=== PATIENT | male | born 1975 | race Caucasian/White ===

== ENCOUNTER 2024-05-22 13:30 | Outpatient (AMB) | payer OTHER, SELFPAY ==
--- NOTE | 2024-05-22 13:30 | MHC.AM.SUB ---
Vital Signs 05/22/24 14:39 BP 170/80 H Blood Pressure Location Rt radial Position Sitting Respiration 19 Pulse 91 Pulse Source Pulse Oximeter Pulse Oximetry (%) 94 Oxygen Delivery Method Room Air Intake Visit Reasons: Walk in/Intake Allergies No Known Allergies Allergy (Verified 05/22/24 14:17) HPI HPI Walk in/Intake: Details: Patient presents as a walk in for evaluation and treatment of OUD He reports that he has been taking suboxone since 2018 Between 8-12mg daily--was buying it monthly from a friend--friend has since Denies any PMH No medications no hospitalizations Full substance use history obtained by RN and reviewed History of AUD, OUD and StUD In recovery since 2018. 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 Review of Systems Const Reports as per HPI Physical Exam Vital Signs: Last Vital Signs Pulse 91 05/22/24 14:39 Resp 19 05/22/24 14:39 BP 170/80 H 05/22/24 14:39 Pulse Ox 94 05/22/24 14:39 Oxygen Delivery Method Room Air 05/22/24 14:39 Const General: cooperative, alert and awake Nutritional Appearance: thin and underweight Orientation/consciousness: patient oriented x3 Neuro General: patient oriented x3 Psych Appearance: well kempt Speech and movement: Clear speech present Affect: Anxious affect present Attitude: cooperative Thought process: Normal thought process present Thought content: Normal thought content present Assessment & Plan Assessment & Plan (1) Opioid use disorder, severe, in sustained remission: Code(s): F11.21 - Opioid dependence, in remission Category: Medical Plan: increase suboxone dose to 12mg daily. Advised to take 1/2 film BID labs ordered to be completed prior to next appt follow up 4 weeks Orders: Orders Liver Panel 05/22/24 F11.21 - Opioid dependence, in remission Hepatitis C Antibody Reflex 05/22/24 F11.21 - Opioid dependence, in remission Complete Blood Count Auto Diff 05/22/24 F11.21 - Opioid dependence, in remission Comprehensive Met. Panel 05/22/24 F11.21 - Opioid dependence, in remission HIV Ab/Ag 05/22/24 F11.21 - Opioid dependence, in remission Medications: New buprenorphine-naloxone 12-3 mg (Suboxone) 1 film buccal Q24H 30 ea 0RF MAT Intake Nursing Intake Reason for visit: Buprenorphine Are you currently using?: No What are you taking?: Buprenorphine When was your last use?: currently take bup. has been in recovery since 2018. 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: No Have you ever overdosed?: No Have you ever been hospitalized for an overdose?: No Was Naloxone administered?: No Recovery History Have you had any periods of recovery?: Yes What is your longest time in recovery?: 6 months Have you ever had inpatient treatment for your substance abuse disorder?: No Have you been in an inpatient detoxification program?: No Have you been in an inpatient Rehab/[place] house?: No Have you been in an outpatient Methadone Maintenance program?: No Have you been in an outpatient Suboxone Maintenance program?: No Have you been in an AA/NA support program?: No Have you had a Recovery Support Straightening Press Operator Helper?: No Have you had Peer Support?: No Behavioral Health History History of self harming thoughts?: No History of homicidal or suicidal intentions?: No Medical Conditions Endocarditis?: No Skin Infection: No Seizure related to withdrawal or overdose: No Head or brain injury: No Hepatitis A (if yes, have you been treated?): No Hepatitis B (if yes, have you been treated?): No Hepatitis C (if yes, have you been treated?): No HIV (if yes, have you been treated?): No TB (if yes, have you been treated?): No Other: No Legal History History of incarceration: No Currently on parole or probation: No Court mandated programs: No Pending court cases: No DCF involvement: No
[2024-05-22 14:39] VITALS: BP 170/80; PULSE 91; RESP 19; O2SAT 94
== END 2024-05-22 15:11 | disposition home or self-care (01) ==
PROVIDERS: Visit Provider Nurse Practitioner Psychiatric/Mental Health
DX: F11.21 Opioid dependence, in remission (principal)
CPT/HCPCS: 99204

== ENCOUNTER → 2024-05-22 13:30 | Outpatient (BNVA) | payer OTHER, SELFPAY | PROVIDERS: Visit Provider Nurse Practitioner Psychiatric/Mental Health ==

== ENCOUNTER 2024-06-06 14:45 | Outpatient (REF) | payer OTHER, SELFPAY ==
[2024-06-06 15:23] LABS: MANUAL DIFF FLAG NO
[2024-06-06 15:40] LABS: Basophils Percent Auto 0.4 % (0-2); Eosinophils Absolute Auto 0.3 X10*3/uL (0.0-0.4); Eosinophils Percent Auto 3.9 % (0-4); Hematocrit 46.1 % (42.0-52.0); Hemoglobin 16.3 g/dl (14.0-18.0); Imm Gran Abs Auto 0.03 X10*3/uL (0.00-0.03); Imm Gran Pct Auto 0.4 % (0.0-0.4); Lymphocytes Absolute Auto 2.5 X10*3/uL (1.2-4.9); Lymphocytes Percent Auto 32.2 % (20-40); Mean Corpuscular HGB Conc 35.4 g/dl (31.0-36.0); Mean Corpuscular Volume 90.6 fL (80.0-98.0); Mean Platelet Volume 9.3 fL (9.4-12.4); Monocytes Absolute Auto 0.5 X10*3/uL (0.1-1.2); Monocytes Percent Auto 6.9 % (2-11); Neutrophils Absolute Auto 4.3 x10*3/uL (2.0-8.3); Neutrophils Percent Auto 56.2 % (45-73); Platelet Count 235 X10*3/uL (160-400); Red Blood Count 5.09 X10*6/uL (4.60-5.80); Red Cell Distribution Width 12.2 % (11.0-16.0); White Blood Count 7.7 X10*3/uL (4.8-10.8)
[2024-06-06 16:15] LABS: Alanine Aminotransferase 25 U/L (0-40); Albumin Level 4.4 g/dL (3.5-5.0); Alkaline Phosphatase 43 U/L (39-117); Anion Gap 8 (12-20); Aspartate Amino Transferase 30 U/L (5-37); Bilirubin Direct 0.2 mg/dL (0.0-0.5); Blood Urea Nitrogen 18 mg/dL (9-16); Calcium 9.6 mg/dL (8.4-10.2); Carbon Dioxide 31 mmol/L (22-29); Chloride 102 mmol/L (96-108); Estimated Glomerular Filt Rate > 60; Glucose Random 89 mg/dL (60-115); Potassium 4.4 mmol/L (3.3-5.1); Sodium 137 mmol/L (135-145); Total Protein 7.6 g/dL (6.5-8.0)
[2024-06-09 05:19] LABS: HIV AB/AG Nonreactive (Nonreactive); HIV Num 1 0.06 S/CO (0.00-0.99); ~HepC Num1 0.11 S/CO (0.00-0.79); ~Hepatitis C Antibody Nonreactive (Nonreactive)
== END 2024-06-06 14:46 | disposition home or self-care (01) ==
LOC: HO.LAB 14:45
PROVIDERS: Absent Provider Nurse Practitioner Psychiatric/Mental Health
DX: Z11.4 Encounter for screening for human immunodeficiency virus [HIV] (principal); F11.21 Opioid dependence, in remission
CPT/HCPCS: 36415; 80053; 82248; 85025; 86803; 87389

== ENCOUNTER 2024-06-18 14:29 | Outpatient (AMB) | payer OTHER, SELFPAY ==
--- NOTE | 2024-06-18 14:30 | A.OFFVISCC_ITS ---
Vital Signs 06/18/24 14:36 BP 130/70 Blood Pressure Location Rt radial Position Sitting Respiration 22 H Pulse 65 Pulse Source Pulse Oximeter Pulse Oximetry (%) 98 Intake Visit Reasons: MAT follow up Allergies No Known Allergies Allergy (Verified 05/22/24 14:17) HPI HPI MAT follow up: Details: Patient presents for follow up Currently prescribed Suboxone 12mg daily Still some constipation, but managing with miralx reviewed lab work At next visit would like to discuss Sublocade injection Review of Systems Const Reports as per HPI and Reports no additional complaints Physical Exam Vital Signs: Last Vital Signs Pulse 65 06/18/24 14:36 Resp 22 H 06/18/24 14:36 BP 130/70 06/18/24 14:36 Pulse Ox 98 06/18/24 14:36 Const General: cooperative, healthy appearing and well groomed Nutritional Appearance: thin Orientation/consciousness: patient oriented x3 Limitations: no limitations Neuro General: patient oriented x3 Results AMB 14 Panel Urine Drug Screen Urine Marijuana (THC) Negative Last Edit by Anna Mancilla RN on 06/18/24 14:43 Urine Cocaine Negative Last Edit by Anna Mancilla RN on 06/18/24 14:43 Urine Morphine Negative Last Edit by Anna Mancilla RN on 06/18/24 14:43 Urine Methamphetamine Negative Last Edit by Anna Mancilla RN on 06/18/24 14:43 Urine Amphetamine Negative Last Edit by Anna Mancilla RN on 06/18/24 14:43 Urine Benzodiazepine Negative Last Edit by Anna Mancilla RN on 06/18/24 14 :43 Urine Barbiturates Negative Last Edit by Anna Mancilla RN on 06/18/24 14:4 3 Urine Methadone Negative Last Edit by Anna Mancilla RN on 06/18/24 14:43 Urine Buprenorphine Positive Last Edit by Anna Mancilla RN on 06/18/24 14: 43 Urine Tricyclic Antidepressant Negative Last Edit by Anna Mancilla RN on 06/18/24 14:43 Urine MDMA Negative Last Edit by Anna Mancilla RN on 06/18/24 14:43 Urine Oxycodone Negative Last Edit by Anna Mancilla RN on 06/18/24 14:43 Urine Phencyclidine Negative Last Edit by Anna Mancilla RN on 06/18/24 14: 43 Urine Propoxyphene Negative Last Edit by Anna Mancilla RN on 06/18/24 14:4 3 Assessment & Plan Assessment & Plan (1) Opioid use disorder, severe, in sustained remission: Code(s): F11.21 - Opioid dependence, in remission Category: Medical Plan: * continue suboxone at current dose * follow up 2 months * discuss injection at next visit Orders: Orders AMB 14 Panel Urine Drug Screen Today F11.21 - Opioid dependence, in remission Medications: Refilled buprenorphine-naloxone 12-3 mg (Suboxone) 1 film buccal Q24H 30 ea 1RF
[2024-06-18 14:36] VITALS: BP 130/70; PULSE 65; RESP 22; O2SAT 98
== END 2024-06-18 14:50 | disposition home or self-care (01) ==
PROVIDERS: Visit Provider Nurse Practitioner Psychiatric/Mental Health
DX: F11.21 Opioid dependence, in remission (principal)
CPT/HCPCS: 99214

== ENCOUNTER → 2024-06-18 14:29 | Outpatient (BNVA) | payer OTHER, SELFPAY | PROVIDERS: Visit Provider Nurse Practitioner Psychiatric/Mental Health | DX: F11.20 Opioid dependence, uncomplicated (principal) | CPT/HCPCS: 80305 ==

== ENCOUNTER 2024-08-08 11:02 | Outpatient (AMB) | payer OTHER, SELFPAY ==
--- NOTE | 2024-08-08 13:19 | A.OFFVISCC_ITS ---
Intake Visit Reasons: MAT follow up Allergies No Known Allergies Allergy (Verified 05/22/24 14:17) HPI HPI MAT follow up: Details: Patient presents for follow uo Currently prescribed 12mg QD--takes 1/4 film 4x/day Season is coming to an end would like to move forward with Sublocade goal is to d/c buprenorphine reviewed process, expectations and side effects Review of Systems Const Reports as per HPI and Reports no additional complaints Physical Exam Const General: cooperative, healthy appearing and well groomed Nutritional Appearance: thin Orientation/consciousness: patient oriented x3 Limitations: no limitations Neuro General: patient oriented x3 Assessment & Plan Assessment & Plan (1) Opioid use disorder, severe, in sustained remission: Code(s): F11.21 - Opioid dependence, in remission Category: Medical Plan: * continue suboxone at current dose * will order Sublocade and get authorization * follow up in September
== END 2024-08-08 11:33 | disposition home or self-care (01) ==
PROVIDERS: Visit Provider Nurse Practitioner Psychiatric/Mental Health
DX: F11.21 Opioid dependence, in remission (principal)
CPT/HCPCS: 99214

== ENCOUNTER → 2024-08-08 11:02 | Outpatient (BNVA) | payer OTHER, SELFPAY | PROVIDERS: Visit Provider Nurse Practitioner Psychiatric/Mental Health | DX: F11.21 Opioid dependence, in remission (principal) ==

== ENCOUNTER 2024-10-03 10:31 | Outpatient (AMB) | payer OTHER, SELFPAY ==
--- NOTE | 2024-10-03 10:40 | A.OFFVISCC_ITS ---
Intake Visit Reasons: MAT follow up Allergies No Known Allergies Allergy (Verified 05/22/24 14:17) HPI HPI MAT follow up: Details: Patient presents for follow up and first sublocade injection Current Suboxone dose 12mg QD Questions answered related to injection No concerns at this time Review of Systems Const Reports as per HPI and Reports no additional complaints Physical Exam Const General: cooperative, healthy appearing and well groomed Nutritional Appearance: thin Orientation/consciousness: patient oriented x3 Limitations: no limitations Neuro General: patient oriented x3 Office Meds Sublocade 300 mg/1.5 mL solution,extended release subcutaneous syringe Performing Provider: Oriana Sears CNP Performing Location: [facility] Administered by: Pushpa Gallagher RN on 10/03/24 11:12 Dose Route Admin Location Dispensed Lot Number Expiration Date [facility] Software Specialist 300 mg subcut left lower quad of abd. 1.5 mL [id number] 09/26/25 [address]-1 [employer]. Assessment & Plan Assessment & Plan (1) Opioid use disorder, severe, in sustained remission: Code(s): F11.21 - Opioid dependence, in remission Category: Medical Plan: * tolerated injection * follow up 4 weeks * encouraged to call office with any questions or concerns Orders: Orders AMB Buprenorphine Injection 10/03/24 F11.21 - Opioid dependence, in remission
== END 2024-10-03 11:29 | disposition home or self-care (01) ==
PROVIDERS: Visit Provider Nurse Practitioner Psychiatric/Mental Health
DX: F11.21 Opioid dependence, in remission (principal)
CPT/HCPCS: 99213

== ENCOUNTER → 2024-10-03 10:31 | Outpatient (BNVA) | payer OTHER, SELFPAY | PROVIDERS: Visit Provider Nurse Practitioner Psychiatric/Mental Health | DX: F11.21 Opioid dependence, in remission (principal) | CPT/HCPCS: 96372; Q9992 ==

== ENCOUNTER 2024-10-31 10:13 | Outpatient (AMB) | payer OTHER, SELFPAY ==
--- NOTE | 2024-10-31 10:30 | AM.OFFVISNUR ---
Intake Visit Reasons: Sublocade Injection Allergies No Known Allergies Allergy (Verified 05/22/24 14:17) Nursing Note Patient Presents for sublocade Injection. Current Dose 300mg . Given in the with RLQ no noted or stated complications. Denies symptoms, and denies any break through cravings. Will follow up with RN in 4 weeks for injection. Will need to see provider for check in [facility], and would like to at that appt consider 100mg and or Brixadi. Office Meds Sublocade 300 mg/1.5 mL solution,extended release subcutaneous syringe Performing Provider: Oriana Sears CNP Performing Location: [facility] Administered by: Anna Mancilla RN on 10/31/24 10:43 Dose Route Admin Location Dispensed Lot Number Expiration Date [facility] Print Buyer 300 mg subcut RLQ 1.5 mL [id number] 09/26/25 [address]-3 [employer]. Assessment & Plan Assessment & Plan Orders: Orders AMB Buprenorphine Injection Today F11.90 - Opioid use, unspecified, uncomplicated
== END 2024-10-31 10:39 | disposition home or self-care (01) ==
PROVIDERS: Visit Provider Nurse Practitioner Psychiatric/Mental Health
DX: F11.90 Opioid use, unspecified, uncomplicated (principal)

== ENCOUNTER → 2024-10-31 10:13 | Outpatient (BNVA) | payer OTHER, SELFPAY | PROVIDERS: Visit Provider Nurse Practitioner Psychiatric/Mental Health | DX: F11.90 Opioid use, unspecified, uncomplicated (principal) | CPT/HCPCS: 96372; Q9992 ==

== ENCOUNTER 2024-11-27 10:24 | Outpatient (AMB) | payer OTHER, SELFPAY ==
--- NOTE | 2024-11-27 10:41 | AM.OFFVISNUR ---
Intake Visit Reasons: Sublocade Injection Allergies No Known Allergies Allergy (Verified 05/22/24 14:17) Nursing Note Patient Presents for Sublocade Injection. Current Dose 100mg . Given in the LLQ with no noted or stated complications. Denies any issues with previous injection. Denies symptoms, and denies any break through cravings. Will follow up with RN in 4 weeks for injection. Will need to see provider for check in next month as well. Per provider workload patient was asked if he is interested in Brixadi injection, he wants to see how this month gos with the decrease in sublocade , and do research. Patient was provided with medication information. Office Meds Sublocade 100 mg/0.5 mL solution,extended release subcutaneous syringe Performing Provider: Oriana Sears CNP Performing Location: [facility] Administered by: Anna Mancilla RN on 11/28/24 09:13 Dose Route Admin Location Dispensed Lot Number Expiration Date [facility] Rock Loader 100 mg subcut LLQ 0.5 mL [id number] 12/27/25 [address]-6 [employer]. Assessment & Plan Assessment & Plan Orders: Orders AMB Buprenorphine Injection 11/27/24 F11.90 - Opioid use, unspecified, uncomplicated Medications: New Sublocade ER (buprenorphine) 100 mg (0.5 mL) subcut ONCE 0.5 mL 0RF NS F11.90 - Opioid use, unspecified, uncomplicated
== END 2024-11-27 10:43 | disposition home or self-care (01) ==
PROVIDERS: Visit Provider Nurse Practitioner Psychiatric/Mental Health
DX: F11.90 Opioid use, unspecified, uncomplicated (principal)

== ENCOUNTER → 2024-11-27 10:24 | Outpatient (BNVA) | payer OTHER, SELFPAY | PROVIDERS: Visit Provider Nurse Practitioner Psychiatric/Mental Health | DX: F11.90 Opioid use, unspecified, uncomplicated (principal) | CPT/HCPCS: 96372; Q9991 ==

== ENCOUNTER 2024-12-24 10:49 | Outpatient (AMB) | payer OTHER, SELFPAY ==
--- NOTE | 2024-12-24 11:12 | MHC.AM.SUB ---
Vital Signs 12/24/24 11:26 BP 140/84 H Blood Pressure Location Lt brachial Position Sitting Respiration 18 Pulse 85 Pulse Source Pulse Oximeter Pulse Oximetry (%) 95 Oxygen Delivery Method Room Air Intake Visit Reasons: MAT/Sublocade Injection Allergies No Known Allergies Allergy (Verified 05/22/24 14:17) HPI HPI MAT/Sublocade Injection: Details: Patient presents for follow up and 4th Sublocade injection Sublocade 100mg Tolerating dose --sleep improved, no withdrawal sx --occasional yawning would like to start spacing out injection -5 weeks constipation -chronic. Review of Systems Const Reports as per HPI and Reports no additional complaints Physical Exam Vital Signs: Last Vital Signs Pulse 85 12/24/24 11:26 Resp 18 12/24/24 11:26 BP 140/84 H 12/24/24 11:26 Pulse Ox 95 12/24/24 11:26 Oxygen Delivery Method Room Air 12/24/24 11:26 Const General: cooperative, healthy appearing and well groomed Nutritional Appearance: thin Orientation/consciousness: patient oriented x3 Limitations: no limitations Neuro General: patient oriented x3 Office Meds Sublocade 100 mg/0.5 mL solution,extended release subcutaneous syringe Performing Provider: Oriana Sears CNP Performing Location: [facility] Administered by: Paulina Camilo on 12/24/24 11:15 Dose Route Admin Location Dispensed Lot Number Expiration Date [facility] Maintenance Coordinator 100 mg subcut RUQ 0.5 mL [id number] 12/27/25 [address]-9 [email or web address] Comments: Pt tolerated injection well. No signs/symptoms of infection from previous injections. Pt plans to discuss Brixadi with MQ today. Assessment & Plan Assessment & Plan (1) Opioid use disorder, severe, in sustained remission: Code(s): F11.21 - Opioid dependence, in remission Category: Medical Plan: tolerated injection follow up 5 weeks (or 6 if he decides he wants to) encouraged to call office with any questions or concerns Orders: Orders AMB Buprenorphine Injection Today F11.21 - Opioid dependence, in remission
[2024-12-24 11:26] VITALS: BP 140/84; PULSE 85; RESP 18; O2SAT 95
== END 2024-12-24 11:27 | disposition home or self-care (01) ==
PROVIDERS: Visit Provider Nurse Practitioner Psychiatric/Mental Health
DX: F11.21 Opioid dependence, in remission (principal)
CPT/HCPCS: 99213

== ENCOUNTER → 2024-12-24 10:49 | Outpatient (BNVA) | payer OTHER, SELFPAY | PROVIDERS: Visit Provider Nurse Practitioner Psychiatric/Mental Health | DX: F11.21 Opioid dependence, in remission (principal) | CPT/HCPCS: 96372; Q9991 ==

== ENCOUNTER → 2025-01-29 11:11 | Outpatient (BNVA) | payer OTHER, SELFPAY | DX: F11.21 Opioid dependence, in remission (principal) ==

== ENCOUNTER 2025-01-30 13:44 | Outpatient (AMB) | payer OTHER, SELFPAY ==
--- NOTE | 2025-01-30 14:06 | AM.OFFVISNUR ---
Vital Signs 01/30/25 14:35 BP 120/80 Blood Pressure Location Rt brachial Position Sitting Respiration 20 Pulse 78 Pulse Source Pulse Oximeter Pulse Oximetry (%) 98 Oxygen Delivery Method Room Air Intake Visit Reasons: Sublocade Injection Allergies No Known Allergies Allergy (Verified 05/22/24 14:17) Office Meds Sublocade 100 mg/0.5 mL solution,extended release subcutaneous syringe Performing Provider: Oriana Sears CNP Performing Location: [facility] Administered by: Anna Mancilla RN on 01/30/25 14:38 Dose Route Admin Location Dispensed Lot Number Expiration Date [facility] Dehairing Machine Tender 100 mg subcut LLQ 0.5 mL [id number] 12/27/25 [address]-1 [employer]. Assessment & Plan Assessment & Plan Orders: Orders AMB Buprenorphine Injection Today F11.90 - Opioid use, unspecified, uncomplicated Coding
[2025-01-30 14:35] VITALS: BP 120/80; PULSE 78; RESP 20; O2SAT 98
--- OUTSIDE RECORDS SUMMARY | 2025-01-30 15:26 | XMS_ITS | Encounter Summary ---
Author Organization [facility] Address [address] [place] [address] Care Team Providers Care Infantry Unit Leader Name Role Phone Maxime Heredia DO Primary Care Provider Unavaila ble Reason for Visit * Reason Onset Date Comments Medication 02/08/2023 Encounter Details Date Type Department Care Team Description 02/08/2023 Refill Gastroenterology - [place] [address] [facility] [address] [place] [id number] Baljeet Adair MD [address] [facility] [address] [place] [address] Medication Social History Tobacco Use Types Packs/Day Years Used Date Smoking Tobacco: Never Smokeless Tobacco: Current Alcohol Use Standard Drinks/Week Comments No 0 (1 standard drink = 0.6 oz pure alcohol) Previous alcohol abuse, quit 3 years ago Alcohol Habits Answer Date Recorded How often do you have a drink containing alcohol ? Never 09/15/2020 How many drinks containing a lcohol do you have on a typical day when you are drinking? Not asked How often do you have six or more drinks on one occasion? Not asked Sex Assigned at Date Recorded Not on file documented as of this encounter Plan of Treatment Not on file documented as of this encounter Visit Diagnoses Not on filedocumented in this encounter Care Teams Infantry Unit Leader Relationship Specialty Start Date End Date Maxime Heredia DO PCP - General Internal Medicine 05/09/22 documented as of this encounter
== END 2025-01-30 14:14 | disposition home or self-care (01) ==
DX: F11.90 Opioid use, unspecified, uncomplicated (principal)

== ENCOUNTER → 2025-01-30 13:44 | Outpatient (BNVA) | payer OTHER, SELFPAY | DX: F11.90 Opioid use, unspecified, uncomplicated (principal) | CPT/HCPCS: 96372; Q9991 ==

== ENCOUNTER 2025-03-04 10:56 | Outpatient (AMB) | payer OTHER, SELFPAY ==
--- NOTE | 2025-03-04 11:12 | AM.OFFVISNUR ---
Intake Visit Reasons: Sublocade Injection Allergies No Known Allergies Allergy (Verified 05/22/24 14:17) Nursing Note Patient Presents for sublocade Injection. Current [id number] . Given in the RLQ with no noted or stated complications. Denies any issues with previous injection. Denies symptoms, and denies any break through cravings. Will follow up with MD in 6 weeks for injection. Patient is trying to see if he can tolerate extending appointments out further than every 4 weeks. He tried 5 weeks this past time and states doing well, he did use a suboxone 1/2 film to sleep one night when he felt like he was having a craving. Patient wants to try 6 weeks this time and verbally understands to call with any questions or concerns. Office Meds Sublocade 100 mg/0.5 mL solution,extended release subcutaneous syringe Performing Provider: Marla Delgadillo MD Performing Location: [facility] Administered by: Anna Mancilla RN on 03/04/25 11:14 Dose Route Admin Location Dispensed Lot Number Expiration Date [facility] Theater Technician 100 mg subcut RLQ 0.5 mL [id number] 01/24/26 [address]-9 [employer]. Assessment & Plan Assessment & Plan Orders: Orders AMB Buprenorphine Injection Today Marla Delgadillo MD F11.90 - Opioid use, unspecified, uncomplicated Medications: Refilled buprenorphine ER (Sublocade) (0.5 mL) 100 mg subcutaneously once every 28 days; 0.5 mL 0RF Oriana Sears CNP Coding
--- OUTSIDE RECORDS SUMMARY | 2025-03-04 12:52 | XMS_ITS | Encounter Summary ---
Author Organization [facility] Address [facility] [place] [address] Care Team Providers Care Construction Safety Manager Name Role Phone Laz De La Torre MD Primary Care Provider Maxime Rushing DO Primary Care Provider Unavaila ble Reason for Visit * Reason Onset Date Comments APPOINTMENT 03/09/2020 Encounter Details Date Type Department Care Team Description 03/09/2020 Telephone Adult Medicine [address] [address] Shana Cummins PA-C APPOINTMENT Social History Tobacco Use Types Packs/Day Years Used Date Smoking Tobacco: Never Assessed Alcohol Habits Answer Date Recorded How often do you have a drink containing alcohol ? Never 09/15/2020 How many drinks containing a lcohol do you have on a typical day when you are drinking? Not asked How often do you have six or more drinks on one occasion? Not asked Sex Assigned at Date Recorded Not on file documented as of this encounter Miscellaneous Notes * Telephone Encounter - Monet Kulkarni M.A. - 03/10/2020 10:02 AM EDT [phone] (home) Multiple attempts to call pt to reschedule PE. Pt has not answered lvm for pt to return call. Will cancel appt if pt returns call please reschedule PE for sometiems in April or May. * Telephone Encounter - Shana Cummins PA-C - 03/09/2020 4:17 PM EDT Please call this patient and reschedule his PE for sometime in April or May. Please advise him thatdue to the coronavirus pandemic we are not conducting PEs at this time. Thank you documented in this encounter Plan of Treatment Not on file documented as of this encounter Visit Diagnoses Not on filedocumented in this encounter Care Teams Construction Safety Manager Relationship Specialty Start Date End Date Laz De La Torre MD PCP - General Internal Medicine 01/06/20 05/08/22 Maxime Heredia DO PCP - General Internal Medicine 05/09/22 documented as of this encounter
--- OUTSIDE RECORDS SUMMARY | 2025-03-04 12:52 | XMS_ITS | Encounter Summary ---
Author Organization [facility] Address [facility] [place] [address] Care Team Providers Care Group Therapist Name Role Phone Laz De La Torre MD Primary Care Provider Maxime Rushing DO Primary Care Provider Unavaila ble Encounter Details Date Type Department Care Team Description 09/20/2020 Release of Information Medical Records [address] [place] [id number] Abstract, Provider Social History Tobacco Use Types Packs/Day Years [...] Assigned at Date Recorded Not on file COVID-19 Exposure Response Date Recorded In the last month, have you been in contact with someone who was confirmed or suspected to have Coronavirus / COVID-19? No / Unsure 09/15/2020 1:11 PM EDT documented as of this encounter Plan of Treatment Not on file documented as of this encounter Visit Diagnoses Not on filedocumented in this encounter Care Teams Group Therapist Relationship Specialty Start Date End Date Laz De La Torre MD PCP - General Internal Medicine 01/06/20 05/08/22 Maxime Heredia DO PCP - General Internal Medicine 05/09/22 documented as of this encounter
--- OUTSIDE RECORDS SUMMARY | 2025-03-04 12:52 | XMS_ITS | Encounter Summary ---
Author Organization [facility] Address [address] [place] [address] Care Team Providers Care Paint Pourer Name Role Phone Maxime Heredia DO Primary Care Provider Unavaila ble Reason for Visit * Reason Onset Date Comments Medication 02/08/2023 Encounter Details Date Type Department Care Team Description 02/08/2023 Refill Gastroenterology - [place] [address] [facility] [address] [place] [phone] Baljeet Adair MD [address] [facility] [address] [place] [address] Medication Social History Tobacco Use Types Packs/Day [...] on filedocumented in this encounter Care Teams Paint Pourer Relationship Specialty Start Date End Date Maxime Heredia DO PCP - General Internal Medicine 05/09/22 documented as of this encounter
== END 2025-03-04 11:36 | disposition home or self-care (01) ==
LOC: HO.HCC 10:57
DX: F11.90 Opioid use, unspecified, uncomplicated (principal)

== ENCOUNTER → 2025-03-04 10:56 | Outpatient (BNVA) | payer OTHER, SELFPAY | DX: F11.90 Opioid use, unspecified, uncomplicated (principal) | CPT/HCPCS: 96372; Q9991 ==

== ENCOUNTER → 2025-04-23 14:44 | Outpatient (BNVA) | payer OTHER, SELFPAY | DX: Z79.891 Long term (current) use of opiate analgesic (principal) ==

== ENCOUNTER 2025-05-22 15:38 | Outpatient (AMB) | payer OTHER, SELFPAY ==
[2025-05-22 15:50] VITALS: PULSE 77; O2SAT 99
--- NOTE | 2025-05-22 15:50 | MHC.OFFVIS ---
Vital Signs 05/22/25 15:50 Pulse 77 Pulse Source Pulse Oximeter Pulse Oximetry (%) 99 Oxygen Delivery Method Room Air Intake Visit Reasons: MAT Allergies No Known Allergies Allergy (Verified 05/22/25 15:50) HPI Comments Details: He has no complaints. He has felt well. Review of Systems Const All systems reviewed & are unremarkable except as noted in HPI and below Physical Exam Vital Signs: Last Vital Signs Pulse 77 05/22/25 15:50 Pulse Ox 99 05/22/25 15:50 Oxygen Delivery Method Room Air 05/22/25 15:50 Const General: cooperative Assessment & Plan Assessment & Plan (1) Opioid use disorder, severe, in sustained remission: Code(s): F11.21 - Opioid dependence, in remission Category: Medical Plan: Continue Suboxone See as scheduled. Coding Level of Care Code Est Pt Level 3 (24120) Diagnoses Opioid use disorder, severe, in sustained remission F11.21
== END 2025-05-22 16:13 | disposition home or self-care (01) ==
LOC: HO.HCC 15:38
PROVIDERS: Visit Provider Internal Medicine
DX: F11.21 Opioid dependence, in remission (principal)
CPT/HCPCS: 99213